=== PATIENT | female | born 1975 | race Caucasian/White ===

== ENCOUNTER 2020-11-18 01:21 | Inpatient (IN) | payer BC ==
[2020-11-18] VITALS (12 sets, daily range): BP systolic 118–148; BP diastolic 65–77
[~2020-11-18] VITALS: Ht 175.3 cm; Wt 90.9 kg
[2020-11-18] MEDS ORDERED: PHEN37.54 PO (02:06)
[2020-11-18 02:15] LABS: BASOPHILS % (AUTO) 0.3 % (0-1); EOSINOPHILS % (AUTO) 0.2 % (0-6); HEMATOCRIT 39.5 % (35.0-45.0); HEMOGLOBIN 13.3 g/dl (12.0-16.0); LYMPHOCYTES # (AUTO) 2.5 X10'3 (1.1-4.8); LYMPHOCYTES % (AUTO) 23.7 % (21-51); MEAN CORPUSCULAR HEMOGLOBIN 29.7 PG (27.0-31.0); MEAN CORPUSCULAR HGB CONC 33.7 g/dL (33.0-36.5); MEAN CORPUSCULAR VOLUME 88.1 FL (78-98); MEAN PLATELET VOLUME 9.2 FL (7.4-10.4); MONOCYTES # (AUTO) 0.4 X10'3 (0-0.9); MONOCYTES % (AUTO) 3.9 % (2-12); NEUTROPHILS # (AUTO) 7.6 X10'3 (1.8-7.7); NEUTROPHILS % (AUTO) 71.9 % (42-75); PLATELET COUNT 309 X10'3 (140-440); RED BLOOD COUNT 4.48 X10'6 (4.20-5.60); RED CELL DISTRIBUTION WIDTH 12.4 % (11.5-14.5); WHITE BLOOD COUNT 10.5 X10'3 (4.5-11.0)
[2020-11-18 02:24] LABS: ALANINE AMINOTRANSFERASE 77 U/L (12-78); ALKALINE PHOSPHATASE 122 IU/L (46-116); ANION GAP 11 (8-16); ASPARTATE AMINO TRANSFERASE 39 U/L (10-37); BILIRUBIN,TOTAL 0.5 MG/DL (0.1-1.0); BLOOD UREA NITROGEN 7 MG/DL (7-18); BUN/CREATININE RATIO 8.2 (6.6-38.0); CALCIUM 8.6 MG/DL (8.5-10.1); CHLORIDE 105 MMOL/L (99-107); CREATININE 0.85 MG/DL (0.40-0.90); GLUCOSE 138 MG/DL (70-104); POTASSIUM 3.6 MMOL/L (3.5-5.1); SODIUM 143 MMOL/L (135-145); TOTAL CARBON DIOXIDE 26.7 MMOL/L (24-32); eGFR 72 ML/MIN
[2020-11-18 02:28] LABS: PARTIAL THROMBOPLASTIN TIME 32 SECONDS (22-32)
[2020-11-18] MEDS ORDERED: HYDROcodone/acetaminophen 5mg/325mg tablet PO PRN (03:30)
[2020-11-18] MEDS ORDERED: magnesium 4gm in 100ml NS 100 ML IV PRN (03:30)
[2020-11-18] MEDS ORDERED: normal saline 1000ml 1,000 ML IV SCH (03:30)
[2020-11-18] MEDS ORDERED: aminophylline 250mg/10ml inj. IV PRN (03:30)
[2020-11-18] MEDS ORDERED: magnesium hydroxide 30ml (MOM) UD suspension PO PRN (03:30)
[2020-11-18] MEDS ORDERED: potassium Cl 20 mEq SR tablet PO PRN ×2 (03:30)
[2020-11-18] MEDS ORDERED: regadenoson 0.4mg/5ml syringe IV ONE (03:30)
[2020-11-18] MEDS ORDERED: mag hydrox/Alum hydrox/simeth 30ml oral suspension PO PRN (03:30)
[2020-11-18] MEDS ORDERED: ondansetron/PF 4mg/2ml inj IV PRN (03:30)
[2020-11-18] MEDS ORDERED: magnesium 2GM in 50ml NS 50 ML IV PRN (03:30)
[2020-11-18] MEDS ORDERED: potassium Cl 40MEQ/1/2NS 520ml 520 ML IV PRN ×2 (03:30)
[2020-11-18] MEDS ORDERED: nitroGLYCERIN 0.4mg SUBLingual tab SL PRN (03:30)
[2020-11-18] MEDS ORDERED: metoprolol tartrate 1mg/ml inj IV PRN (03:30)
[2020-11-18] MEDS ORDERED: morphine 2 MG/ML inj. syringe IV PRN (03:30)
[2020-11-18] MEDS ORDERED: acetaminophen 325mg tablet PO PRN ×2 (03:30)
[2020-11-18] MEDS ORDERED: magnesium Cl slow-release 64mg tablet PO PRN (03:30)
[2020-11-18] MEDS ORDERED: regadenoson 0.4mg/5ml syringe IV PRN (03:40)
--- NOTE | 2020-11-18 06:10 | NUR ---
Patient in room MED 310. I have received report from Harper SHEPPARD and had the opportunity to ask questions and assume patient care.
--- NOTE | 2020-11-18 06:20 | NUR ---
Patient in room MED 310. I have received report from Harper SHEPPARD and had the opportunity to ask questions and assume patient care.
--- NOTE | 2020-11-18 06:39 | NUR ---
Problems reprioritized. Patient report given, questions answered & plan of care reviewed with JANETTE.
[2020-11-18] MEDS ORDERED: pantoprazole 40mg Tablet.DR PO SCH (07:30)
[2020-11-18] MEDS ORDERED: K and/or MAG REPLACEMENT MC SCH (08:00)
[2020-11-18] MEDS ORDERED: heparin, porcine 5000 units/ml vial SQ SCH (08:00)
--- NOTE | 2020-11-18 12:03 | NUR ---
PAGER ID: [phone] MESSAGE: RE: HAILY KEYS. ROOM: 310. PT HAS RETURNED FROM [facility] AND IS IN ROOM. -[facility] #[id number] -DR. URBAN PAGED CONCERNING PT'S RETURN TO ROOM.
--- NOTE | 2020-11-18 12:34 | NUR ---
PAGER ID: [phone] MESSAGE: RE: MASSIMOHAIYL. ROOM: 310. PT HAD CTA OF CHEST DONE AT [facility] AND IT WAS NEGATIVE. [facility] IS NEGATIVE WELL. -[facility] #[id number] -DR. URBAN PAGED CONCERNING TEST RESULTS
[2020-11-18] MEDS ORDERED: ASPI81TA52 PO (13:11)
[2020-11-18] MEDS ORDERED: METO-395 PO (13:11)
[2020-11-18] MEDS ORDERED: ATOR20TA66 PO (13:11)
--- NOTE | 2020-11-18 14:30 | NUR ---
Pt is stable and comfortable for discharge. Telemetry and PIV were removed with cannula intact.There wqas no redness or irritable at PIV site. Personal belongings gathered and given to patient. New medications ASA , statin and metoprolol were faxed to [facility]. 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 I reviewed the discharge information and discharge education with pt and family member . Allowed time for pt and family member to ask questions and received answers . Both patient and family member were able to verbalize understanding of discharge education and information. Wheeled pt out to lobby in wheelchair by staff member. Pt left hospital; with her family member in private vehicle.
[2020-11-18] MEDS ORDERED: temazepam 15mg capsule PO PRN (21:00)
== END 2020-11-18 14:24 | disposition home or self-care (01) | DRG 282 ==
LOC: ER 01:23 → MED 3N 03:29
PROVIDERS: ADMIT Internal Medicine; ATTEND Family Medicine
PROC: 4A12XM4 Monitoring of Cardiac Stress, External Approach (ICD-10-PCS; principal; 2020-11-18)
PROC: 3E033HZ Introduction of Radioactive Substance into Peripheral Vein, Percutaneous Approach (ICD-10-PCS; 2020-11-18)
DX: R00.0 Tachycardia, unspecified (principal); I21.A1 Myocardial infarction type 2; F41.9 Anxiety disorder, unspecified; Z88.2 Allergy status to sulfonamides; M54.2 Cervicalgia
CPT/HCPCS: 36415; 78452; 84484; 85025; 85610; 85730; 87081; 93005; 93017; 93306; 99285; A9500; G0378; J2785; J7030

== ENCOUNTER 2020-12-23 05:47 | Day surgery (SDC) | payer BC ==
[2020-12-23] VITALS (13 sets, daily range): BP systolic 117–152; BP diastolic 52–87
[~2020-12-23] VITALS: Ht 175.3 cm; Wt 98.1 kg
[~2020-12-23 05:47] MED LIST: ATOR20TA66 PO; METO-395 PO
[2020-12-23] MEDS ORDERED: normal saline 1,000 ML IV SCH ×2 (06:05→10:35)
[2020-12-23] MEDS ORDERED: diphenhydrAMINE 25mg capsule PO PRN (06:05)
[2020-12-23] MEDS ORDERED: ASPI-1265 PO (06:33)
[2020-12-23 06:42] LABS: BASOPHILS # (AUTO) 0.1 X10'3 (0-0.2); EOSINOPHILS # (AUTO) 0.1 X10'3 (0-0.9); EOSINOPHILS % (AUTO) 0.9 % (0-6); HEMATOCRIT 41.8 % (35.0-45.0); HEMOGLOBIN 14.4 g/dl (12.0-16.0); LYMPHOCYTES % (AUTO) 35.1 % (21-51); MEAN CORPUSCULAR HGB CONC 34.4 g/dL (33.0-36.5); MEAN CORPUSCULAR VOLUME 87.2 FL (78-98); MONOCYTES # (AUTO) 0.4 X10'3 (0-0.9); MONOCYTES % (AUTO) 4.9 % (2-12); NEUTROPHILS # (AUTO) 4.9 X10'3 (1.8-7.7); NEUTROPHILS % (AUTO) 58.1 % (42-75); PLATELET COUNT 276 X10'3 (140-440); RED BLOOD COUNT 4.79 X10'6 (4.20-5.60); RED CELL DISTRIBUTION WIDTH 13.5 % (11.5-14.5); WHITE BLOOD COUNT 8.4 X10'3 (4.5-11.0)
[2020-12-23 07:00] LABS: ALBUMIN 4.6 G/DL (3.4-5.0); ANION GAP 14 (8-16); BLOOD UREA NITROGEN 12 MG/DL (7-18); BUN/CREATININE RATIO 15.2 (6.6-38.0); CALCIUM 9.2 MG/DL (8.5-10.1); CHLORIDE 101 MMOL/L (99-107); CREATININE 0.79 MG/DL (0.40-0.90); GLUCOSE 125 MG/DL (70-104); MAGNESIUM 2.2 MG/DL (1.5-2.4); POTASSIUM 3.7 MMOL/L (3.5-5.1); SODIUM 141 MMOL/L (135-145); TOTAL CARBON DIOXIDE 26.4 MMOL/L (24-32); eGFR 79 ML/MIN
[2020-12-23] MEDS ORDERED: fentaNYL/PF 50MCG/1 ML 2ML syringe ONE (08:52)
[2020-12-23] MEDS ORDERED: LIDOcaine 1% (10mg/ml)w/preservative injection 20ml MDV ONE ×2 (08:52→09:54)
[2020-12-23] MEDS ORDERED: midazolam 1 mg/ML 2ml injection ONE ×2 (08:52→09:17)
[2020-12-23] MEDS ORDERED: iohexol 350MG/ML 100ml bottle IV ONE (08:53)
[2020-12-23] MEDS ORDERED: heparin 1,000unit/ml 10ml vial 10 ML ONE (08:53)
[2020-12-23] MEDS ORDERED: iohexol 350 MG/ML 50ML vial IV ONE (08:53)
[2020-12-23] MEDS ORDERED: METO-395 PO (09:02)
[2020-12-23] MEDS ORDERED: ondansetron/PF 4mg/2ml inj IV PRN (10:35)
[2020-12-23] MEDS ORDERED: proCHLORperazine 10 MG/2 ml inj IV PRN (10:35)
[2020-12-23] MEDS ORDERED: OXAZEpam 15mg capsule PO PRN (10:35)
[2020-12-23] MEDS ORDERED: HYDROcodone/acetaminophen 10/325mg tab PO PRN (10:35)
[2020-12-23] MEDS ORDERED: HYDROcodone/acetaminophen 5mg/325mg tablet PO PRN (10:35)
== END 2020-12-23 16:50 | disposition home or self-care (01) ==
LOC: SSTAY O 05:47
PROVIDERS: ATTEND Internal Medicine Cardiovascular Disease
DX: I21.4 Non-ST elevation (NSTEMI) myocardial infarction (principal); F41.9 Anxiety disorder, unspecified; G43.909 Migraine, unspecified, not intractable, without status migrainosus; E87.6 Hypokalemia; Z79.82 Long term (current) use of aspirin; Z79.899 Other long term (current) drug therapy; Z90.710 Acquired absence of both cervix and uterus; Z90.722 Acquired absence of ovaries, bilateral; Z88.2 Allergy status to sulfonamides; Z88.8 Allergy status to other drugs, medicaments and biological substances; Z82.49 Family history of ischemic heart disease and other diseases of the circulatory system
CPT/HCPCS: 36415; 80048; 83735; 85025; 85610; 93005; 93458; 99152; C1760; C1769; C1894; J1644; J2001; J2250; J3010; Q0163; Q9967; 36246; 99153; A4620; A6258